=== PATIENT | male | born 1955 | race Two or more races ===

== ENCOUNTER 2017-01-17 09:33 | Day surgery (SDC) | payer BC ==
--- NOTE | 2017-01-09 11:44 | Diagnostic Imaging Report ---
Indication: cough Comparison: None 2 views of the chest obtained. Findings: Cardiomediastinal silhouette and pulmonary vascularity are within normal limits for age. The diaphragmatic contour is smooth and costophrenic angles are sharp. No pleural effusions are identified. The bones are unremarkable. Impression: No acute disease
[~2017-01-17] VITALS: Ht 185.4 cm; Wt 86.2 kg
[2017-01-17] VITALS (11 sets, daily range): BP systolic 135–154; BP diastolic 73–86
--- NOTE | 2017-01-17 10:18 | Anethesia Preoperative Eval ---
Anesthesia Pre-op PMH/ROS General Date of Evaluation: Jan 17, 2017 Anesthesiologist: Pankaj ASA Score: ASA 2 Mallampati Score Class I : Soft palate, uvula, fauces, pillars visible Class II: Soft palate, uvula, fauces visible Class III: Soft palate, base of uvula visible Class IV: Only hard plate visible Mallampati Classification: Class I Surgeon: Bret Diagnosis: Mesentereic lymphadenopathy Surgical Procedure: Laparoscopic mesenteric lymph node biospy Anesthesia History: none Family History: no anesthesia problems Allergies: Coded Allergies: CELECOXIB (Verified Allergy, Mild, 01/17/17) FINGERS SWELLED UP Medications: see eMAR Past Medical History Cardiovascular: Reports: HTN, other - HLD, Denies: CAD, SC, valve dz, arrhythmia Pulmonary: Denies: asthma, COPD, KAYLIN, other Gastrointestinal/Genitourinary: Denies: GERD, CRI, ESRD, other Endocrine: Denies: DM, hypothyroidism, steroids, other HEENT: Denies: cataract (L), cataract (R), glaucoma, VENETIE (L), VENETIE (R), other Hematology/Immune: Denies: anemia, DVT, bleeding disorder, other Musculoskeletal/Integumentary: Denies: OA, RA, DJD, DDD, edema, other PSxH Narrative: adenoidectomy, right bunionectomy Anesthesia Pre-op Phys. Exam Physician Exam see chart Constitutional: NAD Cardiovascular: RRR Respiratory: CTA Airway Exam Mallampati Score: Class I MO: full ROM: full Teeth: intact Anesthesia Pre-op A/P Labs see chart Studies Pre-op Studies: EKG - sb Risk Assessment & Plan Assessment: ASA II Plan: GA Status Change Before Surgery: No Pre-Antibiotics Drug: Ancef 2g Given Within 1 Hr of Incision: Yes JOSE DUPREE M.D. Jan 17, 2017 10:18
[2017-01-17] MEDS ORDERED: TRAMADOL HCL50 MG ORAL (10:28)
[2017-01-17] MEDS ORDERED: TYLENOL EXTRA500 MG ORAL (10:28)
[2017-01-17] MEDS ORDERED: SIMVASTATIN20 MG ORAL (10:31)
[2017-01-17] MEDS ORDERED: ACETAMINOPHEN-1 EAC1 ORAL (10:31)
[2017-01-17] MEDS ORDERED: ASPIRIN-LOW81 MG ORAL (10:31)
[2017-01-17] MEDS ORDERED: Surgicel 4in x 8in TOPIC ONE (11:16)
[2017-01-17] MEDS ORDERED: Bupivacaine w/Epi 0.5% 30ml Vial INJ ONE (11:16)
--- NOTE | 2017-01-17 11:26 | Immediate Post-Op Evaluation ---
Immediate Post-Op Evalulation Immediate Post-Op Evalulation Procedure: laparoscopic mesenteric lymph node biopsy Date of Evaluation: Jan 17, 2017 Time of Evaluation: 13:14 IV Fluids: 1L Blood Products: 0 Estimated Blood Loss: 50 Urinary Output: 0 Blood Pressure Systolic: 165 Blood Pressure Diastolic: 86 Pulse Rate: 78 Respiratory Rate: 16 O2 Sat by Pulse Oximetry: 99 Temperature (Fahrenheit): 97.7 Pain Score (1-10): 0 Nausea: No Vomiting: No Complications 0 Patient Status: awake, reacts, patent, none Hydration Status: adequate Drug: Ancef 2g Given Within 1 Hr of Incision: JOSE Moses M.D. Jan 17, 2017 11:26
--- NOTE | 2017-01-17 11:27 | 48 Hour Post Anesthesia Eval ---
Post Anesthesia Evaluation Procedure: laparoscopic mesenteric lymph node biopsy Date of Evaluation: Jan 17, 2017 Airway: patent Nausea: No Vomiting: No Pain Intensity: 1 Hydration Status: adequate Cardiopulmonary Status: at baseline Mental Status/LOC: patient returned to baseline Post-Anesthesia Complications: 0 Follow-up care needed: ready to discharge JOSE DUPREE M.D. Jan 17, 2017 11:27
[2017-01-17] MEDS ORDERED: fentaNYL 250mcg/5ml ONE (11:30)
[2017-01-17] MEDS ORDERED: Propofol 200mg/20ml IV ONE (11:30)
[2017-01-17] MEDS ORDERED: LR 1000ml ONE (11:30)
[2017-01-17] MEDS ORDERED: Midazolam 2mg/2ml Inj ONE (11:30)
[2017-01-17] MEDS ORDERED: Zemuron 50mg/5ml Inj IV ONE (11:30)
[2017-01-17] MEDS ORDERED: Lidocaine 1% MPF 10mg/ml 5ml ONE (11:30)
[2017-01-17] MEDS ORDERED: Ketorolac 30mg Inj ONE (11:30)
[2017-01-17] MEDS ORDERED: Sodium Chloride 10ml vial INJ ONE (11:30)
--- NOTE | 2017-01-17 11:32 | Pre-Procedure Note/Attestation ---
Pre-Procedure Note/Attestation Complete Prior to Procedure Planned Procedure: not applicable Procedure Narrative: laparoscopic possible open mesenteric lymph node biopsy Indications for Procedure Pre-Operative Diagnosis: abnormal enlarged mesenteric lymph nodes Attestation I attest that I discussed the nature of the procedure; its benefits; risks and complications; and alternatives (and the risks and benefits of such alternatives ), prior to the procedure, with the patient (or the patient's legal medical sales representative). I attest that, if there was a reasonable possibility of needing a blood transfusion, the patient (or the patient's legal medical sales representative) was given the [facility] standardized written summary, pursuant to the [place] Blood Safety Act ([place] Health and Safety Code # 1645, as amended). I attest that I re-evaluated the patient just prior to the surgery and that there has been no change in the patient's H&P, except as documented below: Neftali Queen Jan 17, 2017 11:32
[2017-01-17] MEDS ORDERED: NS Irrig 1000ml IRRIG ONE (12:01)
--- NOTE | 2017-01-17 14:21 | Brief Operative Note ---
Immediate Post Operative Note Operative Note Pre-op Diagnosis: abnormal enlarged mesenteric lymph nodes Procedure: laparoscopic biopsy of mesenteric lymph nodes Post-op Diagnosis: same as pre-op Surgeon: Bret Anesthesiologist: Pankaj Anesthesia: general Specimen: yes - mesenteric lymph node biopsy and peritoneal fluid Complications: none Condition: stable Fluids: see recoreds Estimated Blood Loss: minimal Drains: none Implant(s) used?: No Neftali Queen Jan 17, 2017 14:21
--- NOTE | 2017-01-19 01:15 | Operative Note - Dictated ---
DATE OF OPERATION: 01/17/2017 PREOPERATIVE DIAGNOSES: 1. Abdominal pain. 2. Large abnormal mesenteric lymph nodes of unknown etiology. POSTOPERATIVE DIAGNOSES: 1. Abdominal pain. 2. Large abnormal mesenteric lymph nodes of unknown etiology. OPERATION PERFORMED: Laparoscopic biopsy of mesenteric lymph nodes. ATTENDING SURGEON: Neftali Queen M.D. PRODUCTION ENGINEER: None. ANESTHESIOLOGIST: Dr. Lira. ANESTHESIA: General REGRINDER OPERATOR. ESTIMATED BLOOD LOSS: Minimal. IV FLUIDS: Please see anesthesia records. ANTIBIOTICS: 2 g of Ancef IV was given 1 hour prior to cut time. SPECIMENS: Multiple biopsies of the large mesenteric mass. DRAINS: None. COMPLICATIONS: None. WOUND CLASSIFICATION: Class 1. INDICATIONS FOR PROCEDURE: This is a 61-year-old male, who for the past 3 months has began to have more abdominal discomfort and during workup was found to have a large mesenteric mass noted on CT scan. Mass was believed to potentially be lymph nodes versus malignancy versus a lymphoma. Tissue was required for accurate diagnosis, and the patient was referred to me for evaluation. Given the location of the mass that was within the mesentery of the bowel, it is not felt that Interventional Radiology approach would be appropriate. Therefore, a surgical biopsy was indicated. The risks, benefits, and alternatives to laparoscopic biopsy of the large mesenteric mass was explained to the patient in detail. The patient expressed understanding and consented to surgery. OPERATIVE NOTE: The patient was taken to the operating room and placed on the operative table in supine position with bilateral arms out. All bony prominences were well padded with GelPads. Prior to entering the operating room, the patient was just voided, so no Tyler catheter was inserted. SCDs were placed. Appropriate time-out was taken in identifying the patient, procedure, operative staff, and surgical staff. General anesthesia was induced and the patient was intubated. Preoperatively, 2 g Ancef IV was given 1 hour prior to cut time. The abdomen was then prepped and draped in standard surgical fashion. The decision was made to proceed with Adam open technique for a 12 mm Jay trocar in the umbilicus. The patient had a small umbilical hernia noted. A fresh 11 blade was used to make an incision through the umbilicus. Incision was carried down to the fascia using electrocautery. The fascial defect was identified. The umbilical hernia was noted to be just preperitoneal fat. A Doris clamp was used to dissect through the peritoneum and enter into the abdomen without complication. Entry into the abdomen was identified under direct vision. A Ralf was then used to elevate the fascia and a 12 mm Jay trocar was inserted under direct visualization without complication. The balloon of Jay trocar was insufflated, and the abdomen was then insufflated to 12 to 15 mmHg without complication. The patient tolerated the insufflation well. Laparoscope was then inserted and the abdomen was inspected. No injury from initial trocar placement was noted. In the left upper quadrant, there were some omental adhesions to the anterior abdominal wall. The liver and gallbladder were otherwise unremarkable. The small bowel was unremarkable. The pelvis was evaluated and the patient was noted to have a small direct left inguinal hernia. Right inguinal region and pelvis were otherwise normal. We then turned our attention to the omentum and placed the patient in Trendelenburg position. The omentum, which was draped over the small bowel mesentery was easily dissected towards the patient's stomach. At this time, we were able to identify a very large multinodular mass in the mesentery. We began by taking multiple biopsies of the mass using electrocautery and laparoscopic forceps. Pathologist was called into the room to evaluate the samples to ensure adequate amount of tissue was obtained. At this time, we then evaluated the biopsy sites and ensured hemostasis using electrocautery. S,all amounts of blood were irrigated and suctioned. When in Trendelenburg position, the pelvis was evaluated and there was some cloudy murky fluid, which was identified. Samples of this fluid were taken and sent to microbiology and pathology for Gram stain, cultures, and cytology. Following this, the abdomen was then reinspected and no other abnormalities were identified. The piece of Surgicel was placed over the biopsy sites and the omentum was then used to cover the biopsy sites. The patient was then placed flat and we began our conclusion of the procedure. The secondary trocar sites, which were placed under direct visualization including a 10 mm trocar in the left lower quadrant, followed by a 5 mm trocar in the suprapubic area were removed under direct visualization without complication. Local anesthetic was infiltrated into all skin incisions. The abdomen was desufflated and the umbilical Jay trocar was removed. The umbilical fascial site was closed using a #0 Vicryl UR suture. The skin incisions were then closed using 4-0 Monocryl subcuticular sutures. The patient tolerated the procedure well. Dressings were applied. The patient was taken to the postanesthetic care unit in stable condition. Neftali Queen M.D. DR: ANASTACIO JOB#: [id number] CC:
== END 2017-01-17 15:10 | disposition home or self-care (01) ==
LOC: SUR 09:33
DX: C83.33 Diffuse large B-cell lymphoma, intra-abdominal lymph nodes (principal); I10 Essential (primary) hypertension; E78.5 Hyperlipidemia, unspecified; E29.1 Testicular hypofunction; E66.3 Overweight; Z88.8 Allergy status to other drugs, medicaments and biological substances; Z79.82 Long term (current) use of aspirin
CPT/HCPCS: 38570; 71020; 87070; 87205; 88104; J0690; J1885; J2250; J2405; J2704; J3010; J7120; 94003; 94150